=== PATIENT | female | born 1985 | race Caucasian/White ===

== ENCOUNTER 2025-02-25 13:35 | Emergency (ER) | payer MEDICAID ==
[~2025-02-25] VITALS: Ht 157.5 cm; Wt 85.0 kg
[2025-02-25 13:39] VITALS: BP 168/80; PULSE 76; RESP 16; TEMP 36.2; O2SAT 100
== END 2025-02-25 16:35 | disposition left against medical advice (07) ==
LOC: ER 13:35
DX: R11.2 Nausea with vomiting, unspecified (principal); E11.65 Type 2 diabetes mellitus with hyperglycemia; I10 Essential (primary) hypertension; Z53.21 Procedure and treatment not carried out due to patient leaving prior to being seen by health care provider
CPT/HCPCS: 99283